=== PATIENT | female | born 1985 | race Caucasian/White ===

== ENCOUNTER 2020-06-15 13:25 | Emergency (ER) | payer OTHER, SELFPAY ==
[2020-06-15 13:40] VITALS: BP 123/68; PULSE 89; RESP 14; TEMP 36.9; O2SAT 100; BMI 19.8
--- NOTE | 2020-06-15 13:41 | HMH.EDUTC ---
[facility] [place] Disposition Clinical Impression: Cervical lymphadenopathy Left otitis media Qualifiers: Otitis media type: suppurative Chronicity: acute Recurrence: non-recurrent Spontaneous tympanic membrane rupture: without spontaneous rupture Qualified Code(s): H66.002 - Acute suppurative otitis media without spontaneous rupture of ear drum, left ear Disposition: Home, Self-Care Condition on Discharge: Good Instructions: Middle Ear Infection, DI for Lymphadenopathy Additional Instructions: Drink plenty of fluids. Take tylenol or ibuprofen for pain or fever. Apply warm wet compresses to the left side of your neck three or four times per day for the next week or so. If the swollen lymph node doesn't resolve within the next 10 days or so, please follow up with your primary care provider for further evaluation. Take the medications as directed. Follow up with your regular doctor. GO TO THE ER FOR ANY WORSENING SYMPTOMS Prescriptions: Brompheniramine/Pseudoephed/Dm [Bromfed Dm Cough Syrup] 5 ml PO Q6HP PRN #240 syrup PRN Reason: Cough [facility]: [facility] Amoxicillin/Potassium Clav [Augmentin 875-125 Tablet] 1 tab PO Q12H 10 Days #20 tab Transmission Status: Received by [facility] Referrals: Jamaal Vazquez [Primary Care Provider] - Forms: Work/School Release Time of Disposition: 14:15 Medical Decision Making - Medical Records Medical records reviewed: No: I reviewed the patient's medical records. - Bennie Inquiry Pt receiving controlled substance: No Vital Signs: 06/15/20 13:40 06/15/20 14:21 Temperature 98.5 F 98.5 F Temperature Source Oral Oral Pulse Rate 89 Pulse Rate [Radial] 89 Respiratory Rate 14 14 Blood Pressure 123/68 Blood Pressure [Right Arm] 123/68 Blood Pressure Mean [Right Arm] 86 Blood Pressure Source Automatic Cuff Blood Pressure Source [Right Arm] Automatic Cuff Blood Pressure Position Sitting Blood Pressure Position [Right Arm] Sitting 02 Sat by Pulse Oximetry 100 Oxygen Delivery Method Room Air Room Air [facility] [place] HPI - General Stated complaint: knot behind ear Time Seen by Provider: 06/15/20 13:41 - History of Present Illness Provider Complaint: She c/o having a knot on the left side of her neck just below her ear. The knot is sore and it is sore above it too. Her left ear has also been full feeling and hurting for the past 3 days. She denies any other swollen lymph nodes or knots on her body elsewhere. She denies feeling bad other than she has been having sinus congestion and feeling like her allergies have been acting up too. - Related Data Previous Rx's Medication Instructions Recorded Amoxicillin/Potassium Clav 1 tab PO Q12H 10 Days #20 tab 06/15/20 [Augmentin 875-125 Tablet] Brompheniramine/Pseudoephed/Dm 5 ml PO Q6HP PRN #240 syrup 06/15/20 [Bromfed Dm Cough Syrup] Allergies Allergy/AdvReac Type Severity Reaction Status Date / Time No Known Allergies Allergy Verified 06/15/20 14:16 [facility] History - Hepatitis A Screen Attestation statement:: This patient has been screened for Hepatitis A risk factors. I have reviewed the patient's past medical history: Yes ROS Obtained: Yes All systems reviewed & no additional complaints - Constitutional Constitutional: Denies chills, Denies fever(s), Reports poor appetite, Reports malaise - Eyes Eyes: Denies eye discharge - ENT Ears, Nose, Mouth, and Throat: Reports as per HPI - Cardiovascular Cardiovascular: Denies chest pain - Respiratory Respiratory: No chest congestion, No cough, No dyspnea Physical Exam - General General appearance: alert, in no apparent distress - Head Head exam: atraumatic, normocephalic, normal inspection - Eye Eye exam: Present: normal appearance, PERRL, EOMI - ENT ENT exam: Present: mucous membranes moist, normal external ear exam - Expanded ENT Exam TM/Canal exam: Right TM: erythema, bulging, e
[2020-06-15 14:21] VITALS: BP 123/68; PULSE 89; RESP 14; TEMP 36.9; O2SAT 100
== END 2020-06-15 14:21 | disposition home or self-care (01) ==
PROVIDERS: Emergency Provider Nurse Practitioner Family; PCP Family Medicine
DX: R59.0 Localized enlarged lymph nodes (principal); H66.002 Acute suppurative otitis media without spontaneous rupture of ear drum, left ear
CPT/HCPCS: 99201